=== PATIENT | male | born 1950 | race Caucasian/White ===

== ENCOUNTER 2022-12-20 17:53 | Inpatient (IN) | payer OTHER, MEDICARE ==
[2022-12-20 19:02] LABS: #Monocytes 0.6 thou/uL (0.11-0.59); #Neutrophils 5.2 thou/uL (1.40-6.50); %Basophils 0.2 % (0.0-1.0); %Lymphocytes 5.7 % (21.0-51.0); %Monocytes 9.6 % (0.0-10.0); %Neutrophils 84.2 % (42.0-75.0); Hematocrit 37.4 % (42.0-52.0); Hemoglobin 11.9 g/dL (14.0-18.0); Mean Corpuscular HGB CONC 31.8 g/dL (32.0-36.0); Mean Corpuscular Hemoglobin 28.7 pg (27.0-31.0); Mean Corpuscular Volume 90.1 fl (78.0-98.0); Mean Platelet Volume 10.1 fL (7.4-10.4); Platelet Count 211 10x3/uL (130-400); RBC Distribution Width 22.5 % (11.5-14.5); Red Blood Cell (RBC) Count 4.15 mill/uL (4.70-6.10); White Blood Cell (WBC) Count 6.2 10x3/uL (4.8-10.8)
[2022-12-20 19:03] LABS: Actual Bicarbonate (HCO3v) 28.4 mEq/L (22-28); Base Excess 4.6 mEq/L (-2.0 to +3.0); Calcium, Ionized (venous) 1.02 mmol/L (1.16-1.32); Chloride (VBG) 91 mmol/L (98-106); Hematocrit-VBG 39 % (42.0-52.0); Hemoglobin (Hb) 13.4 g/dL (12.6-17.4); Potassium (VBG) 3.92 mmol/L (3.70-5.30); Sodium 137.5 mmol/L (133-146); pH (venous) 7.478 (7.32-7.43)
[2022-12-20 19:22] LABS: INR-International Normal Ratio 0.9; PTT 24.6 sec (22.9-36.1); Prothrombin Time 12.7 sec (12.0-14.7)
[2022-12-20 19:23] LABS: CRP (Inflammatory) 1.37 mg/dL (= or < 0.5); Lipase 186 U/L (8-78); Magnesium 1.4 mg/dL (1.6-2.6)
[2022-12-20 19:24] LABS: ALT (SGPT) 28 U/L (8-55); AST (SGOT) 31 U/L (5-34); Albumin 3.9 g/dL (3.4-4.8); Alkaline Phosphatase 85 U/L (40-110); Anion Gap 22 mmol/L (10-20); BUN (Urea Nitrogen) 61 mg/dL (8.4-25.7); Bilirubin, Total 0.7 mg/dL (0.2-1.2); CK (CPK) 209 U/L (30-200); Calc. Creatinine Clearance 0 mL/min (70-130); Calcium 9.8 mg/dL (7.8-10.44); Carbon Dioxide 27 mmol/L (23-31); Chloride 91 mmol/L (98-107); Estimated GFR 32; Globulin 3.2 g/dL (2.4-3.5); Glucose 150 mg/dL (83-110); Potassium 3.8 mmol/L (3.5-5.1); Protein, Total 7.1 g/dL (5.8-8.1); Sodium 136 mmol/L (136-145)
[2022-12-20 19:47] LABS: Troponin I 0.311 ng/mL (< 0.028)
[2022-12-20] MEDS ORDERED: Magnesium 2 GM/50 ML BAG (IN WATER) ONE (20:31)
[2022-12-20] MEDS ORDERED: Aspirin Chewable 81 MG TAB ONE (20:31)
[2022-12-20] MEDS ORDERED: Lorazepam 1 MG TAB PO PRN (21:33)
[2022-12-20] MEDS ORDERED: Lorazepam 2 MG/ML VIAL IM PRN (21:33)
[2022-12-20] MEDS ORDERED: Ondansetron ODT 4 MG TAB PO PRN (21:33)
[2022-12-20] MEDS ORDERED: Electrolyte Replacement Protocol 1 EACH FS SCH (21:45)
[2022-12-20] MEDS ORDERED: fentaNYL 50 mcg/mL 1 mL Vial ONE (21:47)
[2022-12-20 22:05] LABS: Lactic Acid 1.9 mmol/L (0.5-2.2)
[2022-12-20 22:16] LABS: Iron 111 ug/dL (65-175); Iron Binding Capacity, Total 241 mcg/dL (261-462); Magnesium 2.1 mg/dL (1.6-2.6); Phosphorus 3.2 mg/dL (2.3-4.7)
[2022-12-20] MEDS: Thiamine HCl 200 MG/2 ML VIAL SLOW IVP SCH (22:57)
[2022-12-20] MEDS: Lactated Ringer's 1,000 ML IV SCH (22:58)
[2022-12-20] MEDS: Lorazepam 1 MG TAB PO SCH (22:58)
[2022-12-20] MEDS: Nicotine 14 MG PATCH TD SCH (22:59)
[2022-12-20] MEDS ORDERED: Magnesium 2 GM/50 ML(in water) 2 GM in Premix Bag 1 BAG IVPB SCH (23:00)
[2022-12-20] MEDS ORDERED: Folic Acid 1 MG TAB PO SCH (23:00)
[2022-12-20] MEDS ORDERED: Multivit, Therapeutic 1 TAB PO SCH (23:00)
[2022-12-20 23:55] VITALS: BMI 16.9
[2022-12-21 01:28] LABS: Critical Call Chem Troponin I RESULT DECREASING; Troponin I 0.349 ng/mL (< 0.028)
[2022-12-21 04:03] LABS: #Monocytes 0.8 thou/uL (0.11-0.59); #Neutrophils 4.8 thou/uL (1.40-6.50); %Basophils 0.2 % (0.0-1.0); %Eosinophils 0.2 % (0.0-10.0); %Lymphocytes 8.4 % (21.0-51.0); %Monocytes 12.3 % (0.0-10.0); %Neutrophils 78.6 % (42.0-75.0); Hematocrit 32.6 % (42.0-52.0); Hemoglobin 10.6 g/dL (14.0-18.0); Mean Corpuscular HGB CONC 32.5 g/dL (32.0-36.0); Mean Corpuscular Hemoglobin 28.9 pg (27.0-31.0); Mean Corpuscular Volume 88.8 fl (78.0-98.0); Mean Platelet Volume 10.2 fL (7.4-10.4); Platelet Count 153 10x3/uL (130-400); RBC Distribution Width 22.3 % (11.5-14.5); Red Blood Cell (RBC) Count 3.67 mill/uL (4.70-6.10); White Blood Cell (WBC) Count 6.1 10x3/uL (4.8-10.8)
[2022-12-21 04:34] LABS: ALT (SGPT) 20 U/L (8-55); AST (SGOT) 24 U/L (5-34); Albumin 3.2 g/dL (3.4-4.8); Alkaline Phosphatase 68 U/L (40-110); Anion Gap 17 mmol/L (10-20); BUN (Urea Nitrogen) 53 mg/dL (8.4-25.7); Bilirubin, Total 0.6 mg/dL (0.2-1.2); Calc. Creatinine Clearance 31 mL/min (70-130); Calcium 8.4 mg/dL (7.8-10.44); Carbon Dioxide 27 mmol/L (23-31); Chloride 95 mmol/L (98-107); Estimated GFR 48; Globulin 2.5 g/dL (2.4-3.5); Glucose 109 mg/dL (83-110); Lipase 185 U/L (8-78); Protein, Total 5.7 g/dL (5.8-8.1); Sodium 136 mmol/L (136-145)
[2022-12-21 04:48] LABS: Hemoglobin A1c 4.7 % (4.0-6.0)
[2022-12-21] MEDS: Lorazepam 1 MG TAB PO SCH ×3 (05:38→17:19)
[2022-12-21] MEDS ORDERED: Potassium Chloride 20 MEQ TAB PO SCH (08:00)
[2022-12-21] MEDS ORDERED: Potassium Bicarbonate/Cit Ac 20 MEQ TAB PO SCH (08:45)
[2022-12-21] MEDS: Tamsulosin HCl 0.4 MG CAP PO SCH (08:56)
[2022-12-21] MEDS: Multivit, Therapeutic 1 TAB PO SCH (08:56)
[2022-12-21] MEDS: Heparin 5,000 UNITS/ML VIAL SC SCH ×3 (08:56→21:17)
[2022-12-21] MEDS: Folic Acid 1 MG TAB PO SCH (08:56)
[2022-12-21] MEDS: Lactated Ringer's 1,000 ML IV SCH (12:32)
[2022-12-21 13:33] LABS: Amphetamine Not Detected (NotDetected); Barbiturates Screen Not Detected (NotDetected); Benzodiazepine Screen Detected (NotDetected); Cocaine Metabolite Screen Not Detected (NotDetected); Methadone Not Detected (NotDetected); Methamphetamine Not Detected (NotDetected); Opiate Screen Not Detected (NotDetected); Oxycodone Screen Not Detected (NotDetected); Phencyclidine (PCP) Not Detected (NotDetected); THC/Cannabinoid Screen Not Detected (NotDetected); Tricyclic Screen Not Detected (NotDetected)
[2022-12-21 13:34] LABS: Bacteria/HPF None Seen HPF (None Seen); Bilirubin 1+ (Negative); Blood, Urine Negative (Negative); CAUTI Indications for Culture Dysuria,urgency,freq; Clarity Turbid (Clear); Glucose, Urine (Dipstick) Normal (Negative); Ketone, Urine 10 mg/dL (Negative); Leukocyte Negative Leu/uL (Negative); Nitrite Negative (Negative); Protein, Urine (Dipstick) 30 mg/dL (Neg-Trace); RBC/HPF 0-3 HPF (0-3); Specific Gravity, Urine 1.024 (1.002-1.036); Squamous Epithelial None Seen HPF (0-3); pH, Urine 5.5 (5.0-9.0)
[2022-12-21 13:37] LABS: Urine Culture Reflex No No
[2022-12-21 13:48] LABS: Creatinine, Urine 126.07 mg/dL (63-166)
[2022-12-21] MEDS: Nicotine 14 MG PATCH TD SCH (21:16)
[2022-12-21] MEDS: Thiamine HCl 200 MG/2 ML VIAL SLOW IVP SCH (21:17)
[2022-12-21] MEDS ORDERED: Lorazepam 1 MG TAB PO PRN (21:34)
[2022-12-22] MEDS: Lorazepam 1 MG TAB PO SCH ×5 (00:01→21:20)
[2022-12-22] MEDS: Lactated Ringer's 1,000 ML IV SCH (00:01)
[2022-12-22 05:40] LABS: Hematocrit 26.3 % (42.0-52.0); Hemoglobin 8.5 g/dL (14.0-18.0); Mean Corpuscular HGB CONC 32.3 g/dL (32.0-36.0); Mean Corpuscular Hemoglobin 28.7 pg (27.0-31.0); Mean Corpuscular Volume 88.9 fl (78.0-98.0); Mean Platelet Volume 9.6 fL (7.4-10.4); Platelet Count 122 10x3/uL (130-400); RBC Distribution Width 22.2 % (11.5-14.5); Red Blood Cell (RBC) Count 2.96 mill/uL (4.70-6.10); White Blood Cell (WBC) Count 2.7 10x3/uL (4.8-10.8)
[2022-12-22 06:02] LABS: Anion Gap 9 mmol/L (10-20); BUN (Urea Nitrogen) 42 mg/dL (8.4-25.7); CK (CPK) 98 U/L (30-200); Calc. Creatinine Clearance 42 mL/min (70-130); Calcium 8.7 mg/dL (7.8-10.44); Carbon Dioxide 29 mmol/L (23-31); Chloride 102 mmol/L (98-107); Estimated GFR 69; Glucose 84 mg/dL (83-110); Potassium 3.1 mmol/L (3.5-5.1); Sodium 137 mmol/L (136-145)
[2022-12-22] MEDS ORDERED: Potassium Chloride 20 MEQ TAB PO SCH (08:15)
[2022-12-22] MEDS ORDERED: Magnesium Oxide 400 MG TAB PO SCH (08:15)
[2022-12-22] MEDS ORDERED: Potassium Bicarbonate/Cit Ac 20 MEQ TAB PO SCH (08:15)
[2022-12-22] MEDS: Tamsulosin HCl 0.4 MG CAP PO SCH (09:42)
[2022-12-22] MEDS: Folic Acid 1 MG TAB PO SCH (09:42)
[2022-12-22] MEDS: Multivit, Therapeutic 1 TAB PO SCH (09:42)
[2022-12-22 12:32] LABS: Hematocrit 28.1 % (42.0-52.0); Hemoglobin 8.9 g/dL (14.0-18.0)
[2022-12-22] MEDS: Nicotine 14 MG PATCH TD SCH (21:11)
[2022-12-22] MEDS: Thiamine HCl 200 MG/2 ML VIAL SLOW IVP SCH (21:11)
[2022-12-22] MEDS ORDERED: Lorazepam 1 MG TAB PO PRN (21:34)
[2022-12-22] MEDS: Lorazepam 0.5 MG TAB PO SCH (22:38)
[2022-12-23 04:32] LABS: Hematocrit 27.6 % (42.0-52.0); Hemoglobin 8.9 g/dL (14.0-18.0); Mean Corpuscular HGB CONC 32.2 g/dL (32.0-36.0); Mean Corpuscular Hemoglobin 28.8 pg (27.0-31.0); Mean Corpuscular Volume 89.3 fl (78.0-98.0); Mean Platelet Volume 10.6 fL (7.4-10.4); Platelet Count 129 10x3/uL (130-400); RBC Distribution Width 22.3 % (11.5-14.5); Red Blood Cell (RBC) Count 3.09 mill/uL (4.70-6.10); White Blood Cell (WBC) Count 3.4 10x3/uL (4.8-10.8)
[2022-12-23 04:57] LABS: Anion Gap 14 mmol/L (10-20); BUN (Urea Nitrogen) 31 mg/dL (8.4-25.7); Calc. Creatinine Clearance 56 mL/min (70-130); Calcium 9.2 mg/dL (7.8-10.44); Carbon Dioxide 29 mmol/L (23-31); Chloride 95 mmol/L (98-107); Estimated GFR 92; Glucose 109 mg/dL (83-110); Magnesium 1.5 mg/dL (1.6-2.6); Potassium 4.3 mmol/L (3.5-5.1); Sodium 134 mmol/L (136-145)
[2022-12-23 05:00] LABS: Troponin I 0.178 ng/mL (< 0.028)
[2022-12-23] MEDS: Lorazepam 0.5 MG TAB PO SCH ×4 (05:23→23:19)
[2022-12-23] MEDS: Tamsulosin HCl 0.4 MG CAP PO SCH (09:42)
[2022-12-23] MEDS: Thiamine 100 MG TAB PO SCH (09:42)
[2022-12-23] MEDS: Multivit, Therapeutic 1 TAB PO SCH (09:42)
[2022-12-23] MEDS: Folic Acid 1 MG TAB PO SCH (09:43)
[2022-12-23] MEDS: Heparin 5,000 UNITS/ML VIAL SC SCH ×3 (09:44→20:26)
[2022-12-23] MEDS ORDERED: Lorazepam 0.5 MG TAB PO PRN (21:34)
[2022-12-23] MEDS: Nicotine 14 MG PATCH TD SCH (23:19)
[2022-12-24 05:03] LABS: Magnesium 1.3 mg/dL (1.6-2.6)
[2022-12-24] MEDS ORDERED: Electrolyte Replacement Protocol 1 EACH FS PRN (05:37)
[2022-12-24] MEDS ORDERED: Magnesium Sulfate In Water 4 GM in Premix Bag 1 BAG IVPB SCH (06:00)
[2022-12-24] MEDS: Folic Acid 1 MG TAB PO SCH (08:03)
[2022-12-24] MEDS: Multivit, Therapeutic 1 TAB PO SCH (08:03)
[2022-12-24] MEDS: Tamsulosin HCl 0.4 MG CAP PO SCH (08:03)
[2022-12-24] MEDS: Heparin 5,000 UNITS/ML VIAL SC SCH ×3 (08:03→20:29)
[2022-12-24] MEDS: Thiamine 100 MG TAB PO SCH (08:03)
[2022-12-24 20:43] LABS: Magnesium 1.5 mg/dL (1.6-2.6)
[2022-12-24] MEDS ORDERED: Magnesium 2 GM/50 ML(in water) 2 GM in Premix Bag 1 BAG IVPB SCH (21:00)
[2022-12-24] MEDS: Acetaminophen 325 MG TAB PO PRN (21:19)
[2022-12-24] MEDS: Nicotine 14 MG PATCH TD SCH (23:42)
[2022-12-25 04:09] LABS: #Monocytes 0.4 thou/uL (0.11-0.59); #Neutrophils 2.3 thou/uL (1.40-6.50); %Basophils 0.3 % (0.0-1.0); Hemoglobin 8.5 g/dL (14.0-18.0)
[2022-12-25 04:18] LABS: %Eosinophils 1.2 % (0.0-10.0); %Lymphocytes 16.5 % (21.0-51.0); %Monocytes 11.3 % (0.0-10.0); %Neutrophils 70.1 % (42.0-75.0); Hematocrit 25.6 % (42.0-52.0); Mean Corpuscular HGB CONC 33.2 g/dL (32.0-36.0); Mean Corpuscular Volume 87.4 fl (78.0-98.0); Mean Platelet Volume 10.5 fL (7.4-10.4); Platelet Count 129 10x3/uL (130-400); RBC Distribution Width 22.5 % (11.5-14.5); Red Blood Cell (RBC) Count 2.93 mill/uL (4.70-6.10); White Blood Cell (WBC) Count 3.3 10x3/uL (4.8-10.8)
[2022-12-25 04:50] LABS: Anisocytosis SLIGHT = 6-15 cells HPF (0-5); Burr Cells SLIGHT = 2-5 cells HPF (0-1); CellaVision Operator ID lab.abc; Large Platelets 5.9 % (0-5); Platelet Adequacy Comment Platelets Normal; Polychromasia SLIGHT = 2-3 cells HPF (0-2); Smudge Cells 13.7 %
[2022-12-25 05:13] LABS: Anion Gap 11 mmol/L (10-20); BUN (Urea Nitrogen) 32 mg/dL (8.4-25.7); Calc. Creatinine Clearance 48 mL/min (70-130); Calcium 9.3 mg/dL (7.8-10.44); Carbon Dioxide 28 mmol/L (23-31); Chloride 93 mmol/L (98-107); Estimated GFR 80; Glucose 100 mg/dL (83-110); Magnesium 1.9 mg/dL (1.6-2.6); Potassium 4.1 mmol/L (3.5-5.1); Sodium 128 mmol/L (136-145)
[2022-12-25] MEDS ORDERED: Magnesium 2 GM/50 ML(in water) 2 GM in Premix Bag 1 BAG IVPB SCH (08:00)
[2022-12-25] MEDS: Thiamine 100 MG TAB PO SCH (09:07)
[2022-12-25] MEDS: Tamsulosin HCl 0.4 MG CAP PO SCH (09:08)
[2022-12-25] MEDS: Heparin 5,000 UNITS/ML VIAL SC SCH ×3 (09:08→21:02)
[2022-12-25] MEDS: Multivit, Therapeutic 1 TAB PO SCH (09:09)
[2022-12-25] MEDS: Folic Acid 1 MG TAB PO SCH (09:09)
[2022-12-25] MEDS: Acetaminophen 325 MG TAB PO PRN (18:09)
[2022-12-25] MEDS: Nicotine 14 MG PATCH TD SCH (23:48)
[2022-12-26 01:37] LABS: Anion Gap 13 mmol/L (10-20); BUN (Urea Nitrogen) 32 mg/dL (8.4-25.7); Calc. Creatinine Clearance 56 mL/min (70-130); Calcium 8.7 mg/dL (7.8-10.44); Carbon Dioxide 29 mmol/L (23-31); Chloride 92 mmol/L (98-107); Estimated GFR 93; Glucose 91 mg/dL (83-110); Magnesium 1.6 mg/dL (1.6-2.6); Sodium 130 mmol/L (136-145)
[2022-12-26] MEDS ORDERED: Magnesium 2 GM/50 ML(in water) 2 GM in Premix Bag 1 BAG IVPB SCH (02:00)
[2022-12-26] MEDS: Acetaminophen 325 MG TAB PO PRN (02:48)
[2022-12-26 07:10] LABS: #Eosinphils 0.1 thou/uL (0.0-0.7); #Monocytes 0.5 thou/uL (0.11-0.59); #Neutrophils 3.4 thou/uL (1.40-6.50); %Basophils 0.2 % (0.0-1.0); %Eosinophils 1.1 % (0.0-10.0); %Lymphocytes 12.3 % (21.0-51.0); %Monocytes 11.8 % (0.0-10.0); %Neutrophils 73.9 % (42.0-75.0); Hematocrit 25.5 % (42.0-52.0); Hemoglobin 8.2 g/dL (14.0-18.0); Mean Corpuscular HGB CONC 32.2 g/dL (32.0-36.0); Mean Corpuscular Hemoglobin 28.6 pg (27.0-31.0); Mean Corpuscular Volume 88.9 fl (78.0-98.0); Mean Platelet Volume 10.5 fL (7.4-10.4); Platelet Count 160 10x3/uL (130-400); RBC Distribution Width 23.5 % (11.5-14.5); Red Blood Cell (RBC) Count 2.87 mill/uL (4.70-6.10); White Blood Cell (WBC) Count 4.6 10x3/uL (4.8-10.8)
[2022-12-26 07:33] LABS: Anion Gap 13 mmol/L (10-20); BUN (Urea Nitrogen) 31 mg/dL (8.4-25.7); Calc. Creatinine Clearance 56 mL/min (70-130); Calcium 8.9 mg/dL (7.8-10.44); Carbon Dioxide 28 mmol/L (23-31); Cardiac Risk 2.7 (Less than 4.5); Chloride 93 mmol/L (98-107); Cholesterol 159 mg/dl (< 200 Desired); Estimated GFR 93; Glucose 92 mg/dL (83-110); HDL Cholesterol 59 mg/dL (>60 Neg Risk); LDL Cholesterol, Calculated 83 mg/dL; Sodium 130 mmol/L (136-145); Triglycerides 87 mg/dL (Less than 150)
[2022-12-26] MEDS ORDERED: HYDROcodone/Acetaminophen 5/325 mg Tablet PO PRN (08:42)
[2022-12-26] MEDS ORDERED: HYDROcodone/Acetaminophen 5/325 mg Tablet PO SCH (08:45)
[2022-12-26] MEDS ORDERED: Lidocaine 4% Patch TD SCH ×2 (08:45→09:00)
[2022-12-26] MEDS ORDERED: Aspirin 81 mg Enteric Coated Tablet PO SCH (09:00)
[2022-12-26] MEDS: Thiamine 100 MG TAB PO SCH (09:13)
[2022-12-26] MEDS: Heparin 5,000 UNITS/ML VIAL SC SCH ×2 (09:13→16:17)
[2022-12-26] MEDS: Multivit, Therapeutic 1 TAB PO SCH (09:13)
[2022-12-26] MEDS: Folic Acid 1 MG TAB PO SCH (09:13)
[2022-12-26] MEDS: Tamsulosin HCl 0.4 MG CAP PO SCH (09:13)
[2022-12-26 15:31] VITALS: BP 113/59; TEMP 98.3
[2022-12-26] MEDS ORDERED: Transdermal Patch Removal TOP SCH (21:00)
== END 2022-12-26 18:31 | DRG 682 ==
LOC: ERS 17:53 → 2NO 20:57
PROVIDERS: ADMIT Internal Medicine; ATTEND Family Medicine
DX: N17.9 Acute kidney failure, unspecified (principal); E43 Unspecified severe protein-calorie malnutrition; I21.A1 Myocardial infarction type 2; E87.20 Acidosis, unspecified; Z68.1 Body mass index [BMI] 19.9 or less, adult; E87.1 Hypo-osmolality and hyponatremia; E86.0 Dehydration; F17.210 Nicotine dependence, cigarettes, uncomplicated; E83.42 Hypomagnesemia; F10.10 Alcohol abuse, uncomplicated; M48.061 Spinal stenosis, lumbar region without neurogenic claudication; W19.XXXA Unspecified fall, initial encounter; E87.6 Hypokalemia; M43.17 Spondylolisthesis, lumbosacral region; D63.1 Anemia in chronic kidney disease; N18.30 Chronic kidney disease, stage 3 unspecified; F12.929 Cannabis use, unspecified with intoxication, unspecified; Y92.89 Other specified places as the place of occurrence of the external cause
CPT/HCPCS: 36415; 70450; 71045; 72170; 72192; 74176; 80048; 80053; 80061; 80306; 81001; 82010; 82550; 82570; 82728; 82805; 83036; 83540; 83550; 83605; 83690; 83735; 83880; 84100; 84145; 84300; 84484; 85025; 85027; 85610; 85730; 86140; 87040; 93005; 93306; 94760; 97139; J1644; J1650; J3010; J3411; J3475; J7120